=== PATIENT | female | born 1980 | race American Indian/Alaskan Native ===

== ENCOUNTER 2017-05-23 09:05 | Emergency (ER) | payer BC, OTHER ==
[~2017-05-23] VITALS: Ht 160 cm; Wt 68.0 kg
[~2017-05-23 09:05] MED LIST: CEPHALEXIN500 MG PO; ZOFRAN ODT4 MG PO
== END 2017-05-23 14:25 | disposition home or self-care (01) ==
LOC: ED 09:05
DX: F32.9 Major depressive disorder, single episode, unspecified (principal); R45.851 Suicidal ideations; Z72.6 Gambling and betting; F17.200 Nicotine dependence, unspecified, uncomplicated; Z90.89 Acquired absence of other organs
CPT/HCPCS: 80053; 80176; 81001; 84703; 85025; 99283; G0480

== ENCOUNTER 2019-09-11 05:28 | Emergency (ER) | payer BC, OTHER ==
[~2019-09-11] VITALS: Ht 160 cm; Wt 87.5 kg
== END 2019-09-11 05:58 | disposition home or self-care (01) ==
LOC: ED 05:28
DX: S90.111A Contusion of right great toe without damage to nail, initial encounter (principal); L03.031 Cellulitis of right toe; W22.8XXA Striking against or struck by other objects, initial encounter; F17.200 Nicotine dependence, unspecified, uncomplicated
CPT/HCPCS: 99283